=== PATIENT | female | born 1970 | race Caucasian/White ===

== ENCOUNTER 2022-11-08 09:08 | Outpatient (CLI) | payer BC | END 2022-11-08 09:09 | disposition home or self-care (01) | LOC: BURRAD 09:08 | PROVIDERS: ATTEND Family Medicine | DX: Z77.090 Contact with and (suspected) exposure to asbestos (principal) | CPT/HCPCS: 71046 ==

== ENCOUNTER 2023-05-12 13:43 | Outpatient (CLI) | payer BC | END 2023-05-12 14:00 | disposition home or self-care (01) | LOC: BURERS 13:43 → EDSTATUS 13:56 → BURRAD 13:59 | PROVIDERS: ATTEND Family Medicine | DX: M25.512 Pain in left shoulder (principal); M54.2 Cervicalgia; M47.812 Spondylosis without myelopathy or radiculopathy, cervical region; R29.898 Other symptoms and signs involving the musculoskeletal system | CPT/HCPCS: 72040 ==